=== PATIENT | male | born 1950 | race Caucasian/White ===

== ENCOUNTER 2022-03-27 04:56 | Emergency (ER) | payer OTHER ==
[2022-03-27 05:07] VITALS: BP 147/95; PULSE 68; TEMP 97.7; BMI 23.6
[2022-03-27] MEDS ORDERED: LORATADINE 10 MG TABLET PO ONE (06:21)
[2022-03-27] MEDS ORDERED: HYDROCORTISONE 1% TOPICAL CREAM 30 GM TUBE TP ONE (06:22)
[2022-03-27] MEDS ORDERED: LORATADINE 10 MG TABLET ONE (06:29)
== END 2022-03-27 07:59 | disposition home or self-care (01) ==
LOC: JER 04:56
DX: R21 Rash and other nonspecific skin eruption (principal)
CPT/HCPCS: 99283-25

== ENCOUNTER 2022-06-22 01:02 | Inpatient (IN) | payer OTHER ==
[2022-06-22 01:22] VITALS: BMI 26.6
[2022-06-22 03:06] LABS: BASO % 0.7 % (0-2.0); EOS % 4.1 % (0-4.5); HEMATOCRIT 33.3 % (35.4-49); HEMOGLOBIN 11.4 GM/dL (11.7-16.9); MCH 30.8 pg (25.7-33.7); MCHC 34.1 g/dl (32.0-35.9); MEAN CELL VOLUME 90.2 fl (80-96); MEAN PLT VOLUME 6.5 fl (7.5-11.1); MONO % 14.8 % (3.8-10.2); NEUT % 58.4 % (42.8-82.8); PLATELET COUNT 293 10^3/uL (134-434); RDW 17.8 % (11.9-15.9)
[2022-06-22 03:27] LABS: CALCIUM 8.5 mg/dL (8.5-10.1)
[2022-06-22 03:28] LABS: BLOOD UREA NITROGEN 21.2 mg/dL (7-18)
[2022-06-22 03:31] LABS: CREATININE 0.6 mg/dL (0.55-1.3)
[2022-06-22 03:33] LABS: BILIRUBIN,TOTAL 0.9 mg/dL (0.2-1); TOT PROT 6.7 g/dl (6.4-8.2)
[2022-06-22 03:35] LABS: INR 1.09 (0.83-1.09); PROTHROMBIN TIME (PATIENT) 12.6 SEC (9.7-13.0)
[2022-06-22 03:38] LABS: ACTIVATED PTT 27.2 SECONDS (25.2-36.5)
[2022-06-22] MEDS ORDERED: ASPIRIN 81 MG CHEWABLE TABLETS PO ONE (06:33)
[2022-06-22] MEDS ORDERED: ASPIRIN 81 MG CHEWABLE TABLETS ONE (06:55)
[2022-06-22 08:59] LABS: N-TERMINAL BNP 427.3 pg/ml (5-125)
[2022-06-22 13:03] LABS: PH,URINE 6.5 (5.0-8.0); URINE APPEARANCE CLEAR; URINE BILIRUBIN NEGATIVE (NEGATIVE); URINE COLOR YELLOW; URINE GLUCOSE (UA) NEGATIVE (NEGATIVE); URINE KETONE TRACE (NEGATIVE); URINE LEUK ESTERASE NEGATIVE (NEGATIVE); URINE NITRITE NEGATIVE (NEGATIVE); URINE PROTEIN NEGATIVE (NEGATIVE); URINE UROBILINOGEN 0.2 mg/dL (0.2-1.0)
[2022-06-22 14:39] LABS: COCAINE, UR NEGATIVE (NEGATIVE); OPIATES, URI NEGATIVE (NEGATIVE); PHENCYCLIDINE,URINE NEGATIVE (NEGATIVE); URINE AMPHETAMINES NEGATIVE (NEGATIVE); URINE BARBITURATES NEGATIVE (NEGATIVE); URINE BENZODIAZEPINES NEGATIVE (NEGATIVE)
[2022-06-22 14:42] LABS: METHADONE, UR NEGATIVE (NEGATIVE)
[2022-06-22] MEDS: ROSUVASTATIN CA 20 MG TABLET PO SCH (22:55)
[2022-06-23 07:52] LABS: HEMATOCRIT 35.2 % (35.4-49); LYMPH % 23.9 % (8-40); MCH 30.8 pg (25.7-33.7); MEAN CELL VOLUME 90.7 fl (80-96); MEAN PLT VOLUME 7.1 fl (7.5-11.1); NEUT % 58.2 % (42.8-82.8); PLATELET COUNT 341 10^3/uL (134-434); RBC 3.88 M/mm3 (4.00-5.60); RDW 18.1 % (11.9-15.9); WHITE BLOOD COUNT 6.2 K/mm3 (4.0-10.0)
[2022-06-23 07:53] LABS: EOS % 3.9 % (0-4.5)
[2022-06-23 08:22] LABS: BLOOD UREA NITROGEN 16.3 mg/dL (7-18); CALCIUM 8.7 mg/dL (8.5-10.1); MAGNESIUM 1.9 mg/dL (1.8-2.4)
[2022-06-23 08:24] LABS: CREATININE 0.6 mg/dL (0.55-1.3)
[2022-06-23] MEDS ORDERED: ASPIRIN 81 MG CHEWABLE TABLETS ONE (10:15)
[2022-06-23] MEDS: ASPIRIN 81 MG CHEWABLE TABLETS PO SCH (10:58)
[2022-06-24] MEDS: ROSUVASTATIN CA 20 MG TABLET PO SCH ×2 (00:30→21:30)
[2022-06-24] MEDS: ASPIRIN 81 MG CHEWABLE TABLETS PO SCH (09:20)
[2022-06-24] MEDS ORDERED: FUROSEMIDE 40 MG TABLET (FP) PO SCH (15:45)
[2022-06-25] MEDS: FUROSEMIDE 40 MG TABLET (FP) PO SCH (09:17)
[2022-06-25] MEDS ORDERED: ASPIRIN 81 MG CHEWABLE TABLETS PO SCH ×2 (10:00)
[2022-06-25 10:37] LABS: BLOOD UREA NITROGEN 35.1 mg/dL (7-18)
[2022-06-25 10:40] LABS: CREATININE 1.6 mg/dL (0.55-1.3)
[2022-06-25] MEDS: ROSUVASTATIN CA 20 MG TABLET PO SCH (21:24)
[2022-06-26] MEDS: FUROSEMIDE 40 MG TABLET (FP) PO SCH (09:24)
[2022-06-26 13:06] LABS: BLOOD UREA NITROGEN 37.6 mg/dL (7-18)
[2022-06-26 13:10] LABS: CREATININE 0.7 mg/dL (0.55-1.3)
[2022-06-26] MEDS ORDERED: ACETAMINOPHEN 325 MG TABLET (FP) PO PRN (18:35)
[2022-06-26] MEDS: ROSUVASTATIN CA 20 MG TABLET PO SCH (21:25)
[2022-06-26] MEDS: ENOXAPARIN NA (PORCINE) 80 MG/0.8 ML DISP.SYRIN SQ SCH (21:25)
[2022-06-27] MEDS: ENOXAPARIN NA (PORCINE) 80 MG/0.8 ML DISP.SYRIN SQ SCH ×2 (09:45→21:11)
[2022-06-27] MEDS: FUROSEMIDE 40 MG TABLET (FP) PO SCH (09:45)
[2022-06-27] MEDS ORDERED: AMMONIUM LACTATE 12% LOTION 225 GM BOTTLE TP PRN (12:18)
[2022-06-27] MEDS: CALCIUM ACETATE/AL SULFATE TOP 1.9 GM/PACKET PACKET TP SCH (13:18)
[2022-06-27] MEDS: ROSUVASTATIN CA 20 MG TABLET PO SCH (21:11)
[2022-06-28] MEDS: CALCIUM ACETATE/AL SULFATE TOP 1.9 GM/PACKET PACKET TP SCH (11:04)
[2022-06-28] MEDS: ENOXAPARIN NA (PORCINE) 80 MG/0.8 ML DISP.SYRIN SQ SCH ×2 (11:05→21:29)
[2022-06-28] MEDS: FUROSEMIDE 40 MG TABLET (FP) PO SCH (11:05)
[2022-06-28] MEDS: ROSUVASTATIN CA 20 MG TABLET PO SCH (21:29)
[2022-06-29] MEDS: CALCIUM ACETATE/AL SULFATE TOP 1.9 GM/PACKET PACKET TP SCH (09:49)
[2022-06-29] MEDS: ENOXAPARIN NA (PORCINE) 80 MG/0.8 ML DISP.SYRIN SQ SCH ×2 (09:51→21:06)
[2022-06-29] MEDS: FUROSEMIDE 40 MG TABLET (FP) PO SCH (09:51)
[2022-06-29] MEDS: SILVER SULFADIAZINE 1% TOP CREAM 400 GM JAR TP SCH (12:33)
[2022-06-29] MEDS: ROSUVASTATIN CA 20 MG TABLET PO SCH (21:06)
[2022-06-30] MEDS: ENOXAPARIN NA (PORCINE) 80 MG/0.8 ML DISP.SYRIN SQ SCH ×2 (10:37→21:26)
[2022-06-30] MEDS: FUROSEMIDE 40 MG TABLET (FP) PO SCH (10:37)
[2022-06-30] MEDS: SILVER SULFADIAZINE 1% TOP CREAM 400 GM JAR TP SCH (11:17)
[2022-06-30] MEDS: CALCIUM ACETATE/AL SULFATE TOP 1.9 GM/PACKET PACKET TP SCH (11:17)
[2022-06-30] MEDS: ROSUVASTATIN CA 20 MG TABLET PO SCH (21:27)
[2022-07-01] MEDS: FUROSEMIDE 40 MG TABLET (FP) PO SCH (10:13)
[2022-07-01] MEDS: ENOXAPARIN NA (PORCINE) 80 MG/0.8 ML DISP.SYRIN SQ SCH (10:13)
[2022-07-01] MEDS: CALCIUM ACETATE/AL SULFATE TOP 1.9 GM/PACKET PACKET TP SCH (10:16)
[2022-07-01] MEDS: SILVER SULFADIAZINE 1% TOP CREAM 400 GM JAR TP SCH (10:16)
[2022-07-01 10:17] VITALS: BP 125/70; PULSE 88; RESP 20; TEMP 98
== END 2022-07-01 12:37 | DRG 300 ==
LOC: JER 01:02 → JERBED 04:12 → J4W 06-23 22:04 → J6S 06-25 06:17 → OBSVTOIN 06-28 15:47
PROVIDERS: ADMIT Hospitalist; ATTEND Internal Medicine
DX: I82.401 Acute embolism and thrombosis of unspecified deep veins of right lower extremity (principal); L97.929 Non-pressure chronic ulcer of unspecified part of left lower leg with unspecified severity; I89.0 Lymphedema, not elsewhere classified; I87.8 Other specified disorders of veins; M41.9 Scoliosis, unspecified; R91.1 Solitary pulmonary nodule; E86.0 Dehydration; I83.009 Varicose veins of unspecified lower extremity with ulcer of unspecified site; E78.5 Hyperlipidemia, unspecified; I10 Essential (primary) hypertension
CPT/HCPCS: 36415; 70450-TC; 70551-TC; 71045-TC-FY; 71250-TC; 80048; 80053; 80061; 80307; 81003; 82607; 83036; 83735; 83880; 84443; 84484; 85025; 85610; 85730; 86780; 86850; 86900; 86901; 93005; 93010; 93306-TC; 93970-TC; 93971-TC; 97116-GP; 97162-GP; 99285-25; C9803-CS; G0378; U0003; U0005

== ENCOUNTER 2023-12-27 13:58 | Inpatient (IN) | payer OTHER ==
[2023-12-27 15:12] LABS: BASO % 0.6 % (0-2.0); EOS % 3.1 % (0-4.5); HEMATOCRIT 38.1 % (35.4-49); LYMPH % 13.6 % (8-40); MCH 29.1 pg (25.7-33.7); MEAN CELL VOLUME 85.5 fl (80-96); MEAN PLT VOLUME 6.8 fl (7.5-11.1); MONO % 9.9 % (3.8-10.2); NEUT % 72.8 % (42.8-82.8); PLATELET COUNT 305 10^3/uL (134-434); RBC 4.46 M/mm3 (4.00-5.60); RDW 15.4 % (11.9-15.9); WHITE BLOOD COUNT 6.6 K/mm3 (4.0-10.0)
[2023-12-27 15:23] LABS: INR 0.97 (0.83-1.09); PROTHROMBIN TIME (PATIENT) 11.2 SEC (9.7-13.0)
[2023-12-27 15:25] LABS: ACTIVATED PTT 28.5 SECONDS (25.2-36.5)
[2023-12-27 15:39] LABS: POTASSIUM 4.1 mmol/L (3.5-5.1)
[2023-12-27 15:41] LABS: CALCIUM 9.2 mg/dL (8.5-10.1)
[2023-12-27 15:42] LABS: ALBUMIN 3.5 g/dl (3.4-5.0); BLOOD UREA NITROGEN 36.3 mg/dL (7-18)
[2023-12-27 15:45] LABS: CREATININE 0.7 mg/dL (0.55-1.3)
[2023-12-27 15:46] LABS: BILIRUBIN,TOTAL 0.3 mg/dL (0.2-1)
[2023-12-27 15:47] LABS: TOT PROT 8.1 g/dl (6.4-8.2)
[2023-12-27 15:49] LABS: ERYTHROCYTE SEDIMENTATION RATE 51 mm/hr (0-20)
[2023-12-27 16:07] LABS: LACTIC ACID 2.5 mmol/L (0.4-2.0)
[2023-12-27] MEDS: SODIUM CHLORIDE 0.9% 500 ML INFUS.BAG IV ONE (16:09)
[2023-12-27 16:11] VITALS: RESP 18
[2023-12-27] MEDS ORDERED: ACETAMINOPHEN 325 MG TABLET (FP) PO PRN (17:30)
[2023-12-27] MEDS ORDERED: FUROSEMIDE 40 MG/4 ML INJECTABLE VIAL ONE (18:32)
[2023-12-27] MEDS ORDERED: HEPARIN NA (PORCINE) 5,000 UNITS/ML 1ML VIAL SQ SCH (22:00)
[2023-12-27] MEDS ORDERED: APIXABAN 5 MG TABLET ONE (22:23)
[2023-12-27] MEDS ORDERED: ROSUVASTATIN CA 20 MG TABLET ONE (22:23)
[2023-12-27] MEDS: APIXABAN 5 MG TABLET PO SCH (22:28)
[2023-12-27] MEDS: FUROSEMIDE 40 MG/4 ML INJECTABLE VIAL IVPUSH SCH (22:28)
[2023-12-27] MEDS: ROSUVASTATIN CA 20 MG TABLET PO SCH (22:28)
[2023-12-28] MEDS: FOLIC ACID INJECTION - 1 MG, THIAMINE HCL 100 MG, MULTIVIT INJECTION ADULT 10 ML in SOD... IVPB ONE (12:52)
[2023-12-28] MEDS: NYSTATIN 100000 UNIT/GM TOPICAL OINTMENT 15 GM TUBE TP SCH (18:03)
[2023-12-28] MEDS: SILVER SULFADIAZINE 1% TOP CREAM 50 GM JAR TP SCH (18:03)
[2023-12-28] MEDS: DOXYCYCLINE HYCLATE 100 MG CAPSULE PO SCH (18:03)
[2023-12-29] MEDS: LACTOBACILLUS ACIDOPHILUS 1 TABLET PO SCH (15:20)
[2023-12-29 22:42] VITALS: BMI 24.5
[2023-12-30 08:35] LABS: EOS % 2.4 % (0-4.5); HEMATOCRIT 38.2 % (35.4-49); LYMPH % 20.7 % (8-40); MCH 29.2 pg (25.7-33.7); MCHC 34.1 g/dl (32.0-35.9); MEAN CELL VOLUME 85.7 fl (80-96); MEAN PLT VOLUME 7.1 fl (7.5-11.1); MONO % 10.7 % (3.8-10.2); NEUT % 65.2 % (42.8-82.8); PLATELET COUNT 284 10^3/uL (134-434); RBC 4.46 M/mm3 (4.00-5.60); RDW 15.7 % (11.9-15.9); WHITE BLOOD COUNT 5.8 K/mm3 (4.0-10.0)
[2023-12-30 08:47] LABS: POTASSIUM 4.9 mmol/L (3.5-5.1)
[2023-12-30 08:49] LABS: ALBUMIN 3.6 g/dl (3.4-5.0); CALCIUM 9.4 mg/dL (8.5-10.1)
[2023-12-30 08:52] LABS: CREATININE 0.8 mg/dL (0.55-1.3)
[2023-12-30 09:01] LABS: LACTIC ACID 3.3 mmol/L (0.4-2.0)
[2024-01-01 15:14] VITALS: BP 134/80; PULSE 88; TEMP 98.4
== END 2024-01-01 16:33 | DRG 603 ==
LOC: JER 13:58 → JERBED 16:16 → J5S 12-28 05:50
PROVIDERS: ADMIT Family Medicine; ATTEND Family Medicine
DX: L03.115 Cellulitis of right lower limb (principal); L97.919 Non-pressure chronic ulcer of unspecified part of right lower leg with unspecified severity; L97.929 Non-pressure chronic ulcer of unspecified part of left lower leg with unspecified severity; E46 Unspecified protein-calorie malnutrition; R64 Cachexia; E87.20 Acidosis, unspecified; I83.019 Varicose veins of right lower extremity with ulcer of unspecified site; L03.116 Cellulitis of left lower limb; I83.029 Varicose veins of left lower extremity with ulcer of unspecified site; I25.10 Atherosclerotic heart disease of native coronary artery without angina pectoris; B35.1 Tinea unguium
CPT/HCPCS: 36415; 80053; 83605; 85025; 85610; 85651; 85730; 86140; 86850; 86900; 86901; 87040; 87635; 93005; 93010; 99285-25

== ENCOUNTER 2024-05-13 17:30 | Inpatient (IN) | payer OTHER ==
[2024-05-13 19:07] VITALS: BMI 30.7
[2024-05-13 21:24] LABS: BASO % 0.5 % (0-2.0); EOS % 1.2 % (0-4.5); HEMATOCRIT 34.8 % (35.4-49); HEMOGLOBIN 11.8 GM/dL (11.7-16.9); LYMPH % 22.3 % (8-40); MCH 28.4 pg (25.7-33.7); MCHC 33.9 g/dl (32.0-35.9); MEAN CELL VOLUME 83.7 fl (80-96); MEAN PLT VOLUME 6.9 fl (7.5-11.1); MONO % 8.8 % (3.8-10.2); NEUT % 67.2 % (42.8-82.8); PLATELET COUNT 335 10^3/uL (134-434); RBC 4.15 M/mm3 (4.00-5.60); RDW 15.2 % (11.9-15.9); WHITE BLOOD COUNT 6.7 K/mm3 (4.0-10.0)
[2024-05-13 21:28] LABS: POTASSIUM 4.8 mmol/L (3.5-5.1)
[2024-05-13 21:29] LABS: CALCIUM 7.9 mg/dL (8.5-10.1)
[2024-05-13 21:30] LABS: ALBUMIN 3.1 g/dl (3.4-5.0)
[2024-05-13 21:33] LABS: CREATININE 0.6 mg/dL (0.55-1.3)
[2024-05-13 21:35] LABS: BILIRUBIN,TOTAL 0.5 mg/dL (0.2-1); TOT PROT 7.5 g/dl (6.4-8.2)
[2024-05-13 22:08] LABS: ERYTHROCYTE SEDIMENTATION RATE 40 mm/hr (0-20)
[2024-05-14 08:39] LABS: BASO % 0.8 % (0-2.0); EOS % 2.4 % (0-4.5); HEMATOCRIT 36.7 % (35.4-49); HEMOGLOBIN 12.4 GM/dL (11.7-16.9); LYMPH % 25.2 % (8-40); MCH 28.5 pg (25.7-33.7); MCHC 33.9 g/dl (32.0-35.9); MEAN PLT VOLUME 6.6 fl (7.5-11.1); MONO % 12.1 % (3.8-10.2); NEUT % 59.5 % (42.8-82.8); PLATELET COUNT 327 10^3/uL (134-434); RBC 4.37 M/mm3 (4.00-5.60); RDW 15.8 % (11.9-15.9); WHITE BLOOD COUNT 5.2 K/mm3 (4.0-10.0)
[2024-05-14 09:00] LABS: POTASSIUM 3.9 mmol/L (3.5-5.1)
[2024-05-14 09:12] LABS: CALCIUM 8.5 mg/dL (8.5-10.1)
[2024-05-14 09:14] LABS: BLOOD UREA NITROGEN 18.6 mg/dL (7-18)
[2024-05-14 09:16] LABS: CREATININE 0.7 mg/dL (0.55-1.3)
[2024-05-14] MEDS ORDERED: traMADol HCL 50 MG TABLET PO PRN (10:03)
[2024-05-14] MEDS: FUROSEMIDE 40 MG TABLET (FP) PO SCH (10:47)
[2024-05-14] MEDS: ASCORBIC ACID 500 MG TABLET (FP) PO SCH (10:47)
[2024-05-14] MEDS: ATORVASTATIN CA 80 MG TABLET (FP) PO SCH (21:43)
[2024-05-15 10:42] VITALS: BP 128/76; PULSE 96; RESP 19; TEMP 98.3
== END 2024-05-15 12:03 | DRG 300 ==
LOC: JER 17:30 → JERBED 22:47 → J6S 05-14 00:37
PROVIDERS: ADMIT Internal Medicine; ATTEND Family Medicine
DX: I83.019 Varicose veins of right lower extremity with ulcer of unspecified site (principal); L97.919 Non-pressure chronic ulcer of unspecified part of right lower leg with unspecified severity; L97.929 Non-pressure chronic ulcer of unspecified part of left lower leg with unspecified severity; I83.029 Varicose veins of left lower extremity with ulcer of unspecified site; I10 Essential (primary) hypertension; I25.10 Atherosclerotic heart disease of native coronary artery without angina pectoris; E78.5 Hyperlipidemia, unspecified; I89.0 Lymphedema, not elsewhere classified; I87.2 Venous insufficiency (chronic) (peripheral); R26.2 Difficulty in walking, not elsewhere classified; F41.8 Other specified anxiety disorders
CPT/HCPCS: 36415; 80048; 80053; 83605; 85025; 85651; 86140; 87040; 99285-25